=== PATIENT | female | born 1970 | race American Indian/Alaskan Native ===

== ENCOUNTER 2021-03-06 19:29 | Emergency (ER) | payer SELFPAY ==
[2021-03-06] MEDS ORDERED: ONDANSETRON 4 MG/2 ML INJ IV ONE (20:23)
[2021-03-06] MEDS ORDERED: niCARdipine DRIP 40 MG/200 ML BAG IV ONE (20:23)
[2021-03-06] MEDS ORDERED: ONDANSETRON 4 MG/2 ML INJ ONE (20:25)
[2021-03-06 20:43] LABS: Hematocrit 29.3 % (30.3-42.9); Hemoglobin 9.9 gm/dl (10.1-14.3); Mean Corpuscular HGB Conc 34 % (30-34); Mean Corpuscular Volume 91 fl (79-97); Red Blood Count 3.22 M/mm3 (3.65-5.03); Red Cell Distribution Width 16.8 % (13.2-15.2)
[2021-03-06 20:45] LABS: Platelet Count 71 K/mm3 (140-440)
--- NOTE | 2021-03-06 20:48 | XRay Report ---
CHEST 1 VIEW 03/06/2021 7:32 PM INDICATION / CLINICAL INFORMATION: Chest Pain, left. COMPARISON: None available. FINDINGS: SUPPORT DEVICES: None. HEART / MEDIASTINUM: Moderate cardiomegaly. LUNGS / PLEURA: No significant pulmonary or pleural abnormality. No pneumothorax. ADDITIONAL FINDINGS: No significant additional findings. IMPRESSION: Moderate cardiomegaly. Signer Name: Taurus Velasquez MD Signed: 03/06/2021 8:44 PM Workstation Name: [id number]
[2021-03-06 20:54] LABS: INR 0.9 (0.87-1.13)
[2021-03-06 20:55] LABS: Partial Thromboplastin Time 26.1 Sec. (24.2-36.6)
--- NOTE | 2021-03-06 20:56 | Emergency Department Report ---
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 As per triage nurse to call came for chest pain. We use the sign language teleprompter to interview patient. The past 1 day she has had a left-sided headache with lightheadedness and has had 4 episodes of vomiting. She felt lightheaded this evening and developed reproducible left-sided chest pain. Triage states that patient has been out of her medications for last 6 months. Patient states she ran out of her "heart medicine" but last took her blood pressure medicine yesterday. She states she does not know why she did not take her blood pressure medicine today. Patient does not appear to be intimately confused based on her response to questions to the sign fiction and nonfiction writer prose. Patient would not state the year. Patient complains of having a headache and feeling sleepy. Patient's blood pressure is significantly elevated and I was at the bedside during initial triage. Labs were drawn stat and patient was sent to CAT scan stat to rule out intracranial hemorrhage/stroke based on patient's vital signs and presentation. Cardene drip initiated promptly just prior to transfer to CT scan Collateral information obtained from daughter at 10 PM. Patient states that she was given up by her mother at a young age and has recently reconnected with her. She had her mom moved here from [place] 2 weeks ago to assist with her caretaking. She does not know details of patient's past medical history and only knows of diagnosis of hypertension and "brain bleed 15 years ago". Denies history of traumatic brain injury as initially documented on triage. Current medications include aspirin 81 mg Nifedipine 90 mg once a day Atorvastatin 40 mg daily Iron pills 324 mg daily She states that patient has been complaining of headache since yesterday. Took [id number] pain reliever which was "500 mg". Developed headache, chest pain, nausea, and vomiting today. Allergies/Adverse Reactions: Allergies No Known Allergies Allergy (Unverified 03/06/21 19:55) ED Review of Systems ROS: Stated complaint: HYPERTENSIVE EMERGENCY Other details as noted in HPI Comment: All other systems reviewed and negative ED Past Medical Hx - Past Medical History Previous Medical History?: Yes Hx Hypertension: Yes Additional medical history: Deaf, high cholesterol - Surgical History Past Surgical History?: Yes - Social History Smoking Status: Unknown if ever smoked Substance Use Type: None ED Physical Exam - General Limitations: Language Barrier - Other Other exam information: General: No acute distress Head: Atraumatic Eyes: normal appearance ENT: Moist mucous membranes Neck: Normal appearance, no midline tenderness Chest: Clear to auscultation bilaterally CV: Regular rate and rhythm Abdomen: Soft, normal bowel sounds, nontender, nondistended, no rebound or guarding Back: Normal inspection Extremity: Normal inspection, full range of motion Neuro: Alert but drowsy, no facial asymmetry, speech clear, no gross motor sensory deficit Psych: Appropriate behavior Skin: No rash ED Course Vital Signs 03/06/21 03/06/21 03/06/21 20:15 20:31 20:49 Temperature 98.3 F Pulse Rate 92 H 91 H 98 H Respiratory 22 29 H 19 Rate Blood Pressure 261/172 269/180 212/136 Blood Pressure 261/172 [Right] O2 Sat by Pulse 99 100 99 Oximetry 03/06/21 03/06/21 03/06/21 21:01 21:15 21:31 Temperature Pulse Rate 100 H 99 H 98 H Respiratory 35 H 34 H 35 H Rate Blood Pressure 212/136 184/98 158/98 Blood Pressure [Right] O2 Sat by Pulse 99 97 99 Oximetry 03/06/21 03/06/21 03/06/21 21:45 22:01 22:15 Temperature Pulse Rate 103 H 103 H 108 H Respiratory 26 H 29 H 24 Rate Blood Pressure 162/100 162/91 127/86 Blood Pressure [Right] O2 Sat by Pulse 99 97 98 Oximetry 03/06/21 03/06/21 03/06/21 22:31 22:45 23:01 Temperature Pulse Rate 105 H 105 H 105 H Respiratory 27 H 21 23 Rate Blood Pressure 133/89 128/82 133/85 Blood Pressure [Right] O2 Sat by Pulse 98 98 99 Oximetry 03/06/21 03/06/21 03/06/21 23:15 23:31 23:45 Temperature Pulse Rate 104 H 103 H 102 H Respiratory 25 H 22 25 H Rate Blood Pressure 120/72 127/79 133/85 Blood Pressure [Right] O2 Sat by Pulse 99 98 98 Oximetry - Reevaluation(s) Reevaluation #1: 03/06/21 22:00 I spoke to daughter on the phone to obtain collateral information and informed her per patient's need for neurosurgical transfer secondary to hemorrhagic masses and findings of renal failure - Consultations Consultation #1: 9:21 PM Case discussed with on-call neurosurgeon Dr. Zeeshan Smith. Recommends transfer to tertiary care center with neurosurgical capabilities 03/06/21 21:27 case d/w [place] transfer service, awaiting call back for neuro MD and dish washer. 9:42 PM Case discussed with Dr. Allen gate person fire alarm dispatcher. Based on EKG findings no acute intervention on at this time. 03/06/21 21:52 See callback from [facility] at this time with neuro dish washer who states that do not have any neuro ICU beds. 03/06/21 22:02 [facility] do not have neurosurgical bed 03/06/21 22:[address] Ling ED to ED transfer to [facility] 03/06/21 22:45 03/06/21 22:56 ED Medical Decision Making - Lab Data Result diagrams: 03/06/21 20:27 03/06/21 20:27 Lab Results 03/06/21 03/06/21 03/06/21 Range/Units 20:00 20:27 20:27 WBC 8.5 (4.5-11.0) K/mm3 RBC 3.22 L (3.65-5.03) M/mm3 Hgb 9.9 L (10.1-14.3) gm/dl Hct 29.3 L (30.3-42.9) % MCV 91 (79-97) fl MCH 31 (28-32) pg MCHC 34 (30-34) % RDW 16.8 H (13.2-15.2) % Plt Count 71 L (140-440) K/mm3 Seg Neutrophils % Band Straightener PT 13.2 (12.2-14.9) Sec. INR 0.90 (0.87-1.13) APTT 26.1 (24.2-36.6) Sec. Sodium (137-145) mmol/L Potassium (3.6-5.0) mmol/L Chloride (98-107) mmol/L Carbon Dioxide (22-30) mmol/L Anion Gap mmol/L BUN (7-17) mg/dL Creatinine (0.6-1.2) mg/dL Estimated GFR ml/min BUN/Creatinine Ratio % Glucose (65-100) mg/dL Calcium (8.4-10.2) mg/dL Magnesium 2.20 (1.7-2.3) mg/dL Total Bilirubin (0.1-1.2) mg/dL AST (5-40) units/L ALT (7-56) units/L Alkaline Phosphatase (35-129) units/L Troponin T (0.00-0.029) ng/mL Total Protein (6.3-8.2) g/dL Albumin (3.9-5) g/dL Albumin/Globulin Ratio % Triglycerides (2-149) mg/dL Cholesterol (50-199) mg/dL LDL Cholesterol Direct (50-130) mg/dL HDL Cholesterol (40-59) mg/dL Cholesterol/HDL Ratio % Blood Type Antibody Screen 03/06/21 03/06/21 Range/Units 20:27 21:00 WBC (4.5-11.0) K/mm3 RBC (3.65-5.03) M/mm3 Hgb (10.1-14.3) gm/dl Hct (30.3-42.9) % MCV (79-97) fl MCH (28-32) pg MCHC (30-34) % RDW (13.2-15.2) % Plt Count (140-440) K/mm3 Seg Neutrophils % PT (12.2-14.9) Sec. INR (0.87-1.13) APTT (24.2-36.6) Sec. Sodium 138 (137-145) mmol/L Potassium 3.2 L (3.6-5.0) mmol/L Chloride 94.9 L (98-107) mmol/L Carbon Dioxide 17 L (22-30) mmol/L Anion Gap 29 mmol/L BUN 76 H (7-17) mg/dL Creatinine 11.3 H (0.6-1.2) mg/dL Estimated GFR 4 ml/min BUN/Creatinine Ratio 7 % Glucose 152 H (65-100) mg/dL Calcium 9.5 (8.4-10.2) mg/dL Magnesium (1.7-2.3) mg/dL Total Bilirubin 1.20 (0.1-1.2) mg/dL AST 33 (5-40) units/L ALT 19 (7-56) units/L Alkaline Phosphatase 69 (35-129) units/L Troponin T 0.110 H* (0.00-0.029) ng/mL Total Protein 7.5 (6.3-8.2) g/dL Albumin 4.2 (3.9-5) g/dL Albumin/Globulin Ratio 1.3 % Triglycerides 115 (2-149) mg/dL Cholesterol 219 H (50-199) mg/dL LDL Cholesterol Direct 138 H (50-130) mg/dL HDL Cholesterol 65 H (40-59) mg/dL Cholesterol/HDL Ratio 3.36 % Blood Type B POSITIVE Antibody Screen Negative - EKG Data -: EKG Interpreted by Ma EKG shows normal: sinus rhythm, intervals (Prolonged QTC 533), QRS complexes (Narrow QRS), ST-T waves (LVH with diffuse T wave inversions) - EKG Data When compared to previous EKG there are: previous EKG unavailable - Radiology Data Radiology results: report reviewed CHEST 1 VIEW 03/06/2021 7:32 PM INDICATION / CLINICAL INFORMATION: Chest Pain, left. COMPARISON: None available. FINDINGS: SUPPORT DEVICES: None. HEART / MEDIASTINUM: Moderate cardiomegaly. LUNGS / PLEURA: No significant pulmonary or pleural abnormality. No pneumothorax. ADDITIONAL FINDINGS: No significant additional findings. IMPRESSION: Moderate cardiomegaly. CT head/brain wo con INDICATION: headache, htn, ams. TECHNIQUE: Routine CT head. All CT scans at this location are performed using CT dose reduction for ALARA by means of automated exposure control. COMPARISON: None. FINDINGS: Intracranial: * Rounded hemorrhagic lesion seen within the vermis the cerebellum measuring approximately 2 cm. Mild mass effect on the fourth ventricle. However, the fourth ventricle remains patent without hydrocephalus. * 6 mm hemorrhagic lesion in the right superior temporal gyrus. * 5 mm hemorrhagic lesion in the left globus pallidus. Small quantity of high attenuation seen within the right high frontal and parietal sulci, for example axial image 25 of series 2. This could represent subarachnoid hemorrhage. However, this does have a linear serpinginous appearance and could also be vascular seen on image 32-34 series 601. The thalami hypoattenuating. Symmetric hypoattenuation of the white matter. No loss of cortical virk- white matter differentiation. No herniation. Sinuses: Paranasal sinuses and mastoid air cells are essentially clear. Orbits: Globes are intact. Calvarium: No acute fracture. IMPRESSION: 1. There are 3 hemorrhagic lesions seen involving the cerebellum, right temporal lobe, and left globus pallidus, most consistent with hemorrhagic metastasis. 2. There appears to be symmetric bilateral white matter hypoattenuation in the thalami appear abnormal. Recommend MRI brain with and without contrast further evaluate this finding and the hemorrhagic metastasis. 3. Small linear regions of high attenuation seen within the right high frontal and parietal sulci. This could represent small volume of subarachnoid hemorrhage from subarachnoid extension. A thrombosed vein or vessel could also have a similar appearance. - Medical Decision Making 50-year-old female with history of hypertension and remote history of head bleed with unknown details presents to the hospital with complaints of headache, nausea, vomiting he was noted to have confusion is significantly elevated hypertension upon ED arrival. No focal deficits noted. ED work-up reveals 3 h emorrhagic circular lesions in the brain 1 which might cause compression of the fourth ventricle. This reason patient is not a candidate for admission here and requires admission to a tertiary care center to the office neurosurgery. Other findings include significant renal insufficiency with associated metabolic acidosis without hyperkalemia. No previous creatinine available for review and no reported history of renal insufficiency. EKG had several abnormalities with LVH with strain and T wave inversions with mildly elevated troponin. Patient's chest pain is reproducible. Patient does not meet criteria for STEMI intervention at this time. Patient does not meet criteria for anticoagulation given hemorrhagic foci in the brain. Placed on cardiac drain with successful reduction of blood pressure. Patient also treated with Zofran and Keppra provided for seizure prophylaxis. Unfortunately while unable to transfer patient to the hospital in the [place] area due to lack of neuro ICU beds. Patient was accepted by [facility] for ED to ED transfer. Daughter was informed of patient's diagnosis, status, and need for transfer to [place]. I provided daughter with name, address, and phone number of receiving hospital based on my Internet search Daughter was updated when patient was transferred. After transfer I noted neurology note and recommendations Critical Care Time: Yes Critical care time in (mins) excluding proc time.: 75 Critical care attestation.: If time is entered above; I have spent that time in minutes in the direct care of this critically ill patient, excluding procedure time. ED Disposition Clinical Impression: Brain bleed, Hypertensive emergency, Headache, Acute renal failure, Hypokalemia, Abnormal EKG, Thrombocytopenia, Elevated troponin Disposition: 02 SHORT TERM HOSPITAL Is pt being admited?: No Condition: Stable Instructions: Hypertension (ED) Time of Disposition: 00:34
[2021-03-06 21:05] LABS: Albumin 4.2 g/dL (3.9-5); Calcium 9.5 mg/dL (8.4-10.2)
--- NOTE | 2021-03-06 21:12 | Cat Scan Report ---
CT head/brain wo con INDICATION: headache, htn, ams. TECHNIQUE: Routine CT head. All CT scans at this location are performed using CT dose reduction for A FANTASMA by means of automated exposure control. COMPARISON: None. FINDINGS: Intracranial: * Rounded hemorrhagic lesion seen within the vermis the cerebellum measuring approximately 2 cm. Mil d mass effect on the fourth ventricle. However, the fourth ventricle remains patent without hydroceph alus. * 6 mm hemorrhagic lesion in the right superior temporal gyrus. * 5 mm hemorrhagic lesion in the left globus pallidus. Small quantity of high attenuation seen within the right high frontal and parietal sulci, for example axial image 25 of series 2. This could represent subarachnoid hemorrhage. However, this does have a linear serpinginous appearance and could also be vascular seen on image 32-34 series 601. The thalami hypoattenuating. Symmetric hypoattenuation of the white matter. No loss of cortical virk-white matte r differentiation. No herniation. Sinuses: Paranasal sinuses and mastoid air cells are essentially clear. Orbits: Globes are intact. Calvarium: No acute fracture. IMPRESSION: 1. There are 3 hemorrhagic lesions seen involving the cerebellum, right temporal lobe, and left globu s pallidus, most consistent with hemorrhagic metastasis. 2. There appears to be symmetric bilateral white matter hypoattenuation in the thalami appear abnorma l. Recommend MRI brain with and without contrast further evaluate this finding and the hemorrhagic me tastasis. 3. Small linear regions of high attenuation seen within the right high frontal and parietal sulci. Th is could represent small volume of subarachnoid hemorrhage from subarachnoid extension. A thrombosed vein or vessel could also have a similar appearance. Signer Name: Adalberto Pimentel MD Signed: 03/06/2021 9:07 PM Workstation Name: [id number]
[2021-03-06] MEDS ORDERED: levETIRAcetam 1000 MG/NS 0.75% 1,000 MG/100 ML BAG IV ONE (21:36)
[2021-03-06 22:20] LABS: Chol/HDL Ratio 3.36 %
--- NOTE | 2021-03-06 22:55 | Consultation ---
Medications and Allergies Allergies Allergy/AdvReac Type Severity Reaction Status Date / Time No Known Allergies Allergy Unverified 03/06/21 19:55 Active Meds: Active Medications Nicardipine/Sodium Chloride (Cardene Drip 40 Mg/200 Ml) 40 mg in 200 mls @ 25 mls/hr IV ONCE ONE; Protocol Stop: 03/07/21 04:22 Last Titration: 03/06/21 21:45 Dose: 12.5 mg/hr, 62.5 mls/hr Documented by: Physical Examination - Vital Signs Vital Signs: Vital Signs Temp Pulse Resp BP Pulse Ox 98.3 F 94 H 17 261/172 98 03/06/21 20:15 03/06/21 20:15 03/06/21 20:15 03/06/21 20:15 03/06/21 20:15 Results - Laboratory Findings CBC and BMP: 03/06/21 20:27 03/06/21 20:27 Abnormal Lab Findings: Abnormal Labs 03/06/21 03/06/21 20:27 20:27 RBC 3.22 L Hgb 9.9 L Hct 29.3 L RDW 16.8 H Plt Count 71 L Potassium 3.2 L Chloride 94.9 L Carbon Dioxide 17 L BUN 76 H Creatinine 11.3 H Glucose 152 H Troponin T 0.110 H* Cholesterol 219 H LDL Cholesterol Direct 138 H HDL Cholesterol 65 H Assessment and Plan [facility] Consult Note # Demographics Consult Type: Acute Stroke Level 2 (4.5-24 hrs) Patient Location: Emergency Room First Name: Radha Last Name: Julia Date of : 1970 Age: 50 Gender: Female Facility: [facility] Time of Initial Page (Eastern Time): 03/06/2021, 22:14 Time of Return Call (Eastern Time): 03/06/2021, 22:14 # HPI History: 50F reportedly had a fall. Left sided headache and light headed x 1 day, vomited several times reportedly. Noted to be hypertensive upon arrival. # PMH-FH-SH Past Medical History: hyperlipidemia hypertension deafness # Data Head CT: hemorrhage midline cerebellar, left hemispheric. # Assessment Impression: Intracerebral hemorrhage # Plan Thrombolytic/Intervention: NOT IV Thrombolysis or IA Intervention candidate Thrombolytic Exclusion (< 3 hour window): ICH Intraarterial Exclusion: ICH Blood Pressure Management: nicardipine labetolol Target Blood Pressure: SBP < 140 Imaging: (urgency: routine): MRI Brain with AND without contrast Other: telemetry monitoring I have discussed my recommendations with the referring provider Disposition: admit # Logistics Telemedicine: phone only
[2021-03-06 23:05] LABS: Total Cells Counted 100
[2021-03-06 23:07] LABS: Macrocytosis 1+; Platelet Estimate Consistent w Auto
[2021-03-06 23:15] VITALS: BP 133/85
--- NOTE | 2021-03-07 09:12 | Electrocardiograph Report ---
[facility] Test Date: 2021-03-06 Test Time: 20:51:44 Pat Name: ARIEL MISHRA Department: Room: Gender: F Emergency Management Director: HEMANT : 1970 Requested By: ELE TAPIA Order Number: [id number] Reading MD: Juan Carlos Gutierrez Measurements Intervals [place] Rate: 98 P: 78 MO: 167 QRS: 17 QRSD: 94 T: -89 QT: 417 QTc: 533 Interpretive Statements Sinus rhythm LAE, consider biatrial enlargement LVH with secondary repolarization abnormality nonspecific st-t No previous ECG available for comparison Electronically Signed On 03-07-2021 9:12:05 EDT by Juan Carlos Gutierrez
== END 2021-03-07 00:21 | disposition short-term general hospital (02) ==
LOC: ED 19:29
DX: I61.9 Nontraumatic intracerebral hemorrhage, unspecified (principal); I10 Essential (primary) hypertension; N17.9 Acute kidney failure, unspecified; E87.6 Hypokalemia; R94.31 Abnormal electrocardiogram [ECG] [EKG]; D69.6 Thrombocytopenia, unspecified; R74.8 Abnormal levels of other serum enzymes
CPT/HCPCS: 36415; 70450; 71045; 80053; 80061; 83735; 84484; 85007; 85025; 85610; 85730; 86850; 86900; 86901; 93005; 96365; 96366; 96375; 99291; 99292; J1953; J2405